=== PATIENT | male | born 1965 | race Two or more races ===

== ENCOUNTER 2017-05-03 07:29 | Day surgery (SDC) | payer MEDICAID ==
[2017-05-03] MEDS ORDERED: DIAZEPAM 5 MG TAB PO ONE (07:33)
[2017-05-03] MEDS ORDERED: NS 1,000 ML IV ONE (07:33)
[2017-05-03] MEDS ORDERED: FAMOTIDINE 20 MG TAB PO ONE (07:33)
[2017-05-03] MEDS ORDERED: diphenhydrAMINE 25 MG CAP PO ONE ×2 (07:33→08:03)
[2017-05-03] MEDS ORDERED: ASPIRIN EC 325 MG TAB PO ONE ×2 (07:33→08:03)
--- NOTE | 2017-05-03 07:59 | CPEKG ---
Heart Rate: 66 RR Interval: 909 P-R Interval: 196 QRSD Interval: 102 QT Interval: 460 QTC Interval: 482 P Matthews: 0 QRS Matthews: -27 T Wave Matthews: 206 EKG Severity - ABNORMAL ECG - EKG Impression: SINUS RHYTHM EKG Impression: BORDERLINE LEFT AXIS DEVIATION EKG Impression: ABNORMAL T, PROBABLE ISCHEMIA, LATERAL LEADS EKG Impression: BORDERLINE PROLONGED QT INTERVAL Electronically Signed By: Cy Deluca 03-May-2017 11:03:58
[2017-05-03] MEDS ORDERED: DIAZEPAM 5 MG TAB ONE (08:03)
[2017-05-03] MEDS ORDERED: FAMOTIDINE 20 MG TAB ONE (08:03)
[2017-05-03 08:14] LABS: PLATELET COUNT 183 10^3/uL (150-400)
[2017-05-03 08:29] LABS: INR 1.03 (0.83-1.16); PROTIME(PATIENT) 13.4 SEC (12.0-15.0)
--- NOTE | 2017-05-03 09:56 | PDHPUP ---
History & Physical Update H&P update statement: This history and physical update is based on an assessment of the patient which was completed after admission or registration (within 24 hours), but prior to the surgery/procedure. H&P update: H&P reviewed & patient examined, no change in patient's condition since H&P completed
--- NOTE | 2017-05-03 09:57 | PDPROPOC ---
Sedation Plan of Care Sedation Plan of Care: vital signs stable, mental status noted, patient educated of risks, benefits, alternatives, patient can tolerate sedation ASA Classification: ASA 2 Planned drugs: fentanyl, midazolam Mallampati Score: Class 2 Mallampati Reference Image: Patient passed 3-3-2 rule?: Yes
[2017-05-03] MEDS ORDERED: LIDOCAINE 1% 300 MG/30 ML SDV ONE (11:32)
[2017-05-03] MEDS ORDERED: IOPAMIDOL (ISOVUE-370) 150 ML BTL IV ONE (11:33)
[2017-05-03] MEDS ORDERED: fentaNYL 100 MCG/2 ML INJ ONE (11:33)
[2017-05-03] MEDS ORDERED: MIDAZOLAM 2 MG/2 ML VIAL ONE (11:33)
[2017-05-03] MEDS ORDERED: ATROPINE SULFATE 1 MG/10 ML SYR IVP PRN (12:57)
[2017-05-03] MEDS ORDERED: ONDANSETRON 4 MG/2 ML VIAL IVP PRN (12:57)
[2017-05-03] MEDS ORDERED: ATROPINE SULFATE 1 MG/10 ML SYR ONE (12:58)
--- NOTE | 2017-05-03 13:24 | CPIP ---
[f rep st] INVASIVE CARDIAC PROCEDURE DATE OF PROCEDURE: 05/02/2017 PROCEDURE PERFORMED: 1. Coronary Angiography. 2. Left ventriculography. 3. Right heart catheterization. INDICATION: 1. Progressive heart failure symptoms. 2. Cardiomyopathy. ACCESS: The patient was prepped and draped in sterile fashion. 1% lidocaine was used to anesthetize the right inguinal region. A 6-Malaysian introducer sheath was placed selectively into the right commo n femoral artery via modified Seldinger technique. A 7-Malaysian introducer sheath was placed selective ly in the right common femoral vein via modified Seldinger technique. CORONARY ANGIOGRAPHY: A 6-Malaysian JL4 was advanced to the left main coronary artery and images obtain ed. The left main coronary artery bifurcated into an LAD and circumflex coronary arteries. The left main coronary artery appeared normal. The left anterior descending coronary artery gave rise to 2 p rominent diagonal branches as well as several smaller diagonal branches. The left anterior descendin g coronary artery and its complement of diagonal branches appeared normal. The circumflex coronary a rtery is large vessel, but was nondominant. Circumflex coronary artery gave rise to 3 prominent OM b ranches. The circumflex coronary artery and its complement of OM branches appeared normal. A 6-Fren ch JR4 was advanced to the right coronary artery and images obtained. The right coronary artery is d ominant. The right coronary artery appeared normal. LEFT VENTRICULOGRAPHY: A 6-Malaysian pigtail catheter was advanced in the left ventricle and images obt ained. The left ventricle is normal in size but had severely reduced systolic function. Estimated e jection fraction was 20%. RIGHT HEART CATHETERIZATION: Right heart catheter was advanced in the right atrium and pressure and sat obtained. The right atrial pressure was 10 mmHg. The right atrial saturation was 77%. The cath eter was then advanced in the right ventricle and pressure and sat obtained. The right ventricular p ressure was 41/80 mmHg with a saturation of 76%. Catheter was then advanced in the pulmonary artery position and pressure and sat obtained. The pulmonary artery pressure was 41/20 with a saturation of 78%. Catheter was then advanced in the wedge position and pressure obtained. The pulmonary capilla ry wedge pressure was 15 mmHg. The left ventricular end-diastolic pressure was 18 mmHg. The SVC sat uration was 77%. The IVC saturation was 83.2%. Cardiac output was 4.84. Cardiac index 2.43. There was no evidence of shunt. COMPLICATIONS: None. CONCLUSIONS: 1. Normal coronary arteries. 2. Severely reduced left ventricular systolic function with an estimated ejection fraction of 20%. 3. Mild pulmonary hypertension with a pulmonary artery pressure of 28 mmHg. /[id number]/MODL
--- NOTE | 2017-05-03 13:24 | CPIP ---
[f rep st] INVASIVE CARDIAC PROCEDURE DATE OF PROCEDURE: 05/02/2017 PROCEDURE PERFORMED: 1. Coronary Angiography. 2. Left ventriculography. 3. Right heart catheterization. INDICATION: 1. Progressive heart failure symptoms. 2. Cardiomyopathy. ACCESS: The patient was prepped and draped in sterile fashion. 1% lidocaine was used to anesthetize the right inguinal region. A 6-Slovak introducer sheath was placed selectively into the right commo n femoral artery via modified Seldinger technique. A 7-Slovak introducer sheath was placed selective ly in the right common femoral vein via modified Seldinger technique. CORONARY ANGIOGRAPHY: A 6-Slovak JL4 was advanced to the left main coronary artery and images obtain ed. The left main coronary artery bifurcated into an LAD and circumflex coronary arteries. The left main coronary artery appeared normal. The left anterior descending coronary artery gave rise to 2 p rominent diagonal branches as well as several smaller diagonal branches. The left anterior descendin g coronary artery and its complement of diagonal branches appeared normal. The circumflex coronary a rtery is large vessel, but was nondominant. Circumflex coronary artery gave rise to 3 prominent OM b ranches. The circumflex coronary artery and its complement of OM branches appeared normal. A 6-Fren ch JR4 was advanced to the right coronary artery and images obtained. The right coronary artery is d ominant. The right coronary artery appeared normal. LEFT VENTRICULOGRAPHY: A 6-Slovak pigtail catheter was advanced in the left ventricle and images obt ained. The left ventricle is normal in size but had severely reduced systolic function. Estimated e jection fraction was 20%. RIGHT HEART CATHETERIZATION: Right heart catheter was advanced in the right atrium and pressure and sat obtained. The right atrial pressure was 10 mmHg. The right atrial saturation was 77%. The cath eter was then advanced in the right ventricle and pressure and sat obtained. The right ventricular p ressure was 41/80 mmHg with a saturation of 76%. Catheter was then advanced in the pulmonary artery position and pressure and sat obtained. The pulmonary artery pressure was 41/20 with a saturation of 78%. Catheter was then advanced in the wedge position and pressure obtained. The pulmonary capilla ry wedge pressure was 15 mmHg. The left ventricular end-diastolic pressure was 18 mmHg. The SVC sat uration was 77%. The IVC saturation was 83.2%. Cardiac output was 4.84. Cardiac index 2.43. There was no evidence of shunt. COMPLICATIONS: None. CONCLUSIONS: 1. Normal coronary arteries. 2. Severely reduced left ventricular systolic function with an estimated ejection fraction of 20%. 3. Mild pulmonary hypertension with a pulmonary artery pressure of 28 mmHg. /[id number]/MODL
--- NOTE | 2017-05-03 13:24 | CPIP ---
[f rep st] INVASIVE CARDIAC PROCEDURE DATE OF PROCEDURE: 05/02/2017 PROCEDURE PERFORMED: 1. Coronary Angiography. 2. Left ventriculography. 3. Right heart catheterization. INDICATION: 1. Progressive heart failure symptoms. 2. Cardiomyopathy. ACCESS: The patient was prepped and draped in sterile fashion. 1% lidocaine was used to anesthetize the right inguinal region. A 6-Tajik introducer sheath was placed selectively into the right commo n femoral artery via modified Seldinger technique. A 7-Tajik introducer sheath was placed selective ly in the right common femoral vein via modified Seldinger technique. CORONARY ANGIOGRAPHY: A 6-Tajik JL4 was advanced to the left main coronary artery and images obtain ed. The left main coronary artery bifurcated into an LAD and circumflex coronary arteries. The left main coronary artery appeared normal. The left anterior descending coronary artery gave rise to 2 p rominent diagonal branches as well as several smaller diagonal branches. The left anterior descendin g coronary artery and its complement of diagonal branches appeared normal. The circumflex coronary a rtery is large vessel, but was nondominant. Circumflex coronary artery gave rise to 3 prominent OM b ranches. The circumflex coronary artery and its complement of OM branches appeared normal. A 6-Fren ch JR4 was advanced to the right coronary artery and images obtained. The right coronary artery is d ominant. The right coronary artery appeared normal. LEFT VENTRICULOGRAPHY: A 6-Tajik pigtail catheter was advanced in the left ventricle and images obt ained. The left ventricle is normal in size but had severely reduced systolic function. Estimated e jection fraction was 20%. RIGHT HEART CATHETERIZATION: Right heart catheter was advanced in the right atrium and pressure and sat obtained. The right atrial pressure was 10 mmHg. The right atrial saturation was 77%. The cath eter was then advanced in the right ventricle and pressure and sat obtained. The right ventricular p ressure was 41/80 mmHg with a saturation of 76%. Catheter was then advanced in the pulmonary artery position and pressure and sat obtained. The pulmonary artery pressure was 41/20 with a saturation of 78%. Catheter was then advanced in the wedge position and pressure obtained. The pulmonary capilla ry wedge pressure was 15 mmHg. The left ventricular end-diastolic pressure was 18 mmHg. The SVC sat uration was 77%. The IVC saturation was 83.2%. Cardiac output was 4.84. Cardiac index 2.43. There was no evidence of shunt. COMPLICATIONS: None. CONCLUSIONS: 1. Normal coronary arteries. 2. Severely reduced left ventricular systolic function with an estimated ejection fraction of 20%. 3. Mild pulmonary hypertension with a pulmonary artery pressure of 28 mmHg. /[id number]/MODL
[2017-05-03 17:07] VITALS: BP 125/78; RESP 13; O2SAT 94
[2017-05-03] MEDS ORDERED: CARVEDILOL 6.25 MG TAB PO SCH (18:00)
[2017-05-03] MEDS ORDERED: INSULIN DETEMIR 28 UNIT SQ SCH (21:00)
[2017-05-04] MEDS ORDERED: FUROSEMIDE 40 MG TAB PO SCH (09:00)
[2017-05-04] MEDS ORDERED: LISINOPRIL 20 MG TAB PO SCH (09:00)
[2017-05-04] MEDS ORDERED: ESCITALOPRAM OXALATE 10 MG TAB PO SCH (09:00)
[2017-05-04] MEDS ORDERED: SPIRONOLACTONE 25 MG TAB PO SCH (09:00)
[2017-05-04] MEDS ORDERED: ATORVASTATIN CALCIUM 20 MG TAB PO SCH (09:00)
== END 2017-05-03 19:05 | disposition home or self-care (01) ==
LOC: FCATH 07:29
PROVIDERS: ATTEND Internal Medicine Cardiovascular Disease
DX: I50.23 Acute on chronic systolic (congestive) heart failure (principal); R06.02 Shortness of breath; R94.31 Abnormal electrocardiogram [ECG] [EKG]
CPT/HCPCS: J0461; J1644; J2250; J3010; Q9967

== ENCOUNTER 2017-06-06 03:30 | Emergency (ER) | payer MEDICAID ==
--- NOTE | 2017-06-06 06:07 | EDPHY ---
H & P - Social History Smoking Status: Current every day smoker Allergies/Adverse Reactions: niacin Allergy (Verified 05/01/17 09:43) Home Medications: Medication Instructions Recorded Atorvastatin Calcium [Lipitor 20 40 mg PO DAILY 05/01/17 mg (*)] Carvedilol [Coreg (*)] 6.25 mg PO BIDMEAL 05/01/17 Escitalopram Oxalate [Lexapro] 10 mg PO DAILY 05/01/17 Furosemide [Lasix 40 MG (*)] 60 mg PO DAILY 05/01/17 Insulin Detemir [Levemir Flextouch] 28 unit SQ BID 05/01/17 Lisinopril [Zestril 20 mg (*)] 20 mg PO DAILY 05/01/17 Spironolactone [Aldactone 25 MG 25 mg PO DAILY 05/01/17 (*)] metFORMIN HCL [Glucophage 1000 mg] 1,000 mg PO BIDMEAL 05/01/17 Novolog Flexpen 20 units SQ BID PRN 05/03/17 Medical Decision Making ED Course/Re-evaluation: Chief Complaint: Fatigue, history of CHF HPI: 52-year-old male with a history of diabetes, hypertension and congestive heart failure is presenting with fatigue over the last month. He is currently in a work release program in [employer]. He states that they noted that he has been fatigued, tossing and turning at night. Occasionally gets some mild tightness in his chest, last was 6 hr ago. Patient states that he actually feels in his normal state of health. He states that he is sent in for medical clearance to return to work release. No fevers or chills. No cough. No nausea or vomiting. No leg pain or swelling. He has been taking his medications as prescribed. Patient states he had a normal cardiac catheterization about 6 weeks ago. ROS: 10 point Review of Systems is negative except as noted in the HPI. PMH: Congestive heart failure, hypertension, diabetes, recent umbilical hernia repair Social History: No smoking, no alcohol, no recreational drug use Family History: non-contributory Physical Exam: Gen: Awake, Alert, No Distress HEENT: Nose: no rhinorrhea Eyes: PERRLA, EOMI Mouth: Moist mucosa Neck: Supple, no JVD Chest: nontender, lungs clear to auscultation Heart: S1, S2 normal, no murmur Abd: Soft, non-tender, no guarding Back: no CVA tenderness, no midline tenderness Ext: no edema, non-tender Skin: no rash Neuro: CN II-XII intact, Sensation grossly intact, Strength 5/5 in bilateral upper and lower extremities Clinical Course: ECG time 4:16 a.m. sinus rhythm with a rate of 70, there is left axis deviation , T-wave inversions in the lateral leads, no acute ST or T-wave changes. ECG is unchanged from 05/03/2017. Chest x-ray: No infiltrate or significant edema per my interpretation. Blood work is unremarkable, in particular his troponin is negative. This is a patient with a history of CHF is complaining of fatigue and some episodes of chest tightness. These are not new episodes any says that his symptoms been going on for months. He has been seen by Cardiology recently reports a recent cardiac catheterization which was unremarkable At the beginning of last month. Currently he is not clinically in congestive heart failure. His chest x-ray does not show any edema. He has no peripheral edema on exam. His lungs are clear. His vital signs are normal. His ECG is unremarkable. His laboratory evaluations are also unremarkable. No evidence of acute CHF exacerbation or coronary artery disease at this time. Patient states that his symptoms have unchanged 4 weeks. Plan will be to discharge him with follow-up with his primary care physician for further evaluation. Impression: Fatigue Departure - Departure Disposition: Home, Routine, Self-Care Clinical Impression: Fatigue Condition: Good Instructions: Fatigue (ED) Additional Instructions: Follow up with primary care physician in 3-4 days for further evaluation. Return to the emergency depart for increasing chest pain, shortness of breath, fevers, chills, nausea, vomiting, or any other concerns. Referrals: NONE *PRIMARY CARE P,. [Primary Care Provider] - As per Instructions
[2017-06-06 06:17] LABS: % IMMATURE GRANULYOCYTES 0.3 % (0.0-1.1); ABSOLUTE IMMATURE GRANULOCYTES 0.02 10^3/uL (0.00-0.10); ADD DIFF? NO; ADD MORPH? NO; ADD SCAN? NO; ANION GAP 16 mEq/L (8-16); ATYPICAL LYMPHOCYTE FLAG 0 (0-99); CALCIUM 9.2 mg/dL (8.5-10.4); CARBON DIOXIDE 24 mEq/l (22-31); CHLORIDE 101 mEq/L (97-110); CREATININE 0.9 mg/dL (0.7-1.3); FRAGMENT RBC FLAG 0 (0-99); GLOMERULAR FILTRATION RATE > 60; GLUCOSE 149 mg/dL (70-100); HEMATOCRIT 49.2 % (40.0-51.0); HEMOGLOBIN 17.1 g/dL (13.7-17.5); LEFT SHIFT FLG 0 (0-99); LIPEMIA HEMOLYSIS FLAG 90 (0-99); MEAN CELL HEMOGLOBIN 29.6 pg (27.9-34.1); MEAN CELL HEMOGLOBIN CONCENTR. 34.8 g/dL (32.4-36.7); MEAN CELL VOLUME 85.1 fL (81.5-99.8); MEAN PLATELET VOLUME 10.2 fL (8.7-11.7); PLATELET CLUMPS FLAG 10 (0-99); PLATELET COUNT 192 10^3/uL (150-400); POTASSIUM 4.3 mEq/L (3.5-5.2); RED BLOOD CELL COUNT 5.78 10^6/uL (4.40-6.38); SODIUM 141 mEq/L (134-144); TROPONIN I 0.025 ng/mL (0.000-0.034)
[2017-06-06 06:46] VITALS: TEMP 97.5
[2017-06-06 06:48] VITALS: BP 169/104; PULSE 67; RESP 18; O2SAT 97
--- NOTE | 2017-06-08 13:16 | CPEKG ---
Heart Rate: 70 RR Interval: 857 P-R Interval: 192 QRSD Interval: 104 QT Interval: 408 QTC Interval: 441 P Austin: 44 QRS Austin: -19 T Wave Austin: 167 EKG Severity - ABNORMAL ECG - EKG Impression: SINUS RHYTHM EKG Impression: PROBABLE LEFT ATRIAL ABNORMALITY EKG Impression: BORDERLINE LEFT AXIS DEVIATION EKG Impression: NONSPECIFIC T ABNORMALITIES, LATERAL LEADS Electronically Signed By: Danay Hewitt 08-Jun-2017 17:04:42
== END 2017-06-06 06:30 | disposition home or self-care (01) ==
DX: R53.83 Other fatigue (principal); F17.200 Nicotine dependence, unspecified, uncomplicated; E11.9 Type 2 diabetes mellitus without complications; I11.0 Hypertensive heart disease with heart failure; I50.9 Heart failure, unspecified; Z79.4 Long term (current) use of insulin; Z79.84 Long term (current) use of oral hypoglycemic drugs